=== PATIENT | female | born 1955 | race Hispanic/Latino ===

== ENCOUNTER 2016-05-23 07:00 | Emergency (ER) | payer MEDICAID, MEDICARE ==
[2016-05-23 07:19] VITALS: TEMP 98
[2016-05-23] MEDS ORDERED: Naproxen 550 mg Tab PO STA (07:55)
[2016-05-23] MEDS ORDERED: Naproxen 550 mg Tab PO ONE (07:59)
--- NOTE | 2016-05-23 08:35 | C.PDOC ---
Time Seen by Provider: 05/23/16 07:49 Chief Complaint (Nursing): Back Pain Past Medical History Vital Signs: Last Vital Signs Temp 98 F 05/23/16 07:17 Pulse 102 H 05/23/16 07:17 Resp 18 05/23/16 07:17 BP 149/97 H 05/23/16 07:17 Pulse Ox 99 05/23/16 07:17 - Medical History PMH: Anxiety, HTN Surgical History: Back Surgery ("fusion 2 years ago") - [facility] Procedures DRAINAGE OF PERITONEAL CAVITY, PERCUTANEOUS APPROACH (10/01/15) - Social History Hx Alcohol Use: No Hx Substance Use: No - Immunization History Hx Tetanus Toxoid Vaccination: No Hx Influenza Vaccination: No Hx Pneumococcal Vaccination: No ED Course And Treatment O2 Sat by Pulse Oximetry: 99 Disposition Counseled Patient/Family Regarding: Diagnosis, Need For Followup, Rx Given - Disposition Referrals: Derian Frankel, LANA, COLLECTIONS DIRECTOR [Advanced Practice Nurse] - Disposition: HOME/ ROUTINE Disposition Time: 08:35 Condition: STABLE Additional Instructions: FOLLOW UP WITH YOUR DOCTOR IN 1-2 DAYS USE MEDICATIONS FOR PAIN NEEDED RETURN TO ER IF SYMPTOMS WORSEN Prescriptions: Naproxen [Naprosyn Tab] 375 mg PO BID PRN #20 tab PRN Reason: pain Acetaminophen with Codeine [Tylenol with Codeine #3 Tablet] 1 each PO Q6 PRN # 12 tablet PRN Reason: pain Instructions: Contusion in Adults (ED), Foot Contusion (ED) Print Language: SOUTH AFRICAN - POA Present On Arrival: None, Falls Or Trauma - Clinical Impression Clinical Impression: Fall, Foot contusion, Lumbar contusion, Ecchymosis
--- NOTE | 2016-05-23 08:35 | C.PDOC ---
History Of Present Illness 60 y/o female, with Hx of lumbar fusion 20 years ago, presents to the ED for evaluation of lower back, and left foot pain. Patient states she tripped and fell, and landed on her lower back 2 days ago. Patient denies any head injury, LOC, extremity weakness/numbness, chest pain, shortness of breath, abdominal pain, nausea, vomiting. Time Seen by Provider: 05/23/16 07:49 Chief Complaint (Nursing): Back Pain History Per: Patient History/Exam Limitations: no limitations Onset/Duration Of Symptoms: Days (2) Current Symptoms Are (Timing): Still Present Quality Of Discomfort: "Pain" Severity: Moderate Previous Symptoms: Back Pain Associated Symptoms: None. denies: Incontinence, New Weakness, New Numbness Exacerbating Factor(s): Movement Additional History Per: Patient Past Medical History Reviewed: Historical Data, Nursing Documentation, Vital Signs Vital Signs: Last Vital Signs Temp 98 F 05/23/16 09:26 Pulse 79 05/23/16 09:26 Resp 16 05/23/16 09:26 BP 116/70 05/23/16 09:26 Pulse Ox 99 05/23/16 13:57 - Medical History PMH: Anxiety, HTN Surgical History: Back Surgery ("fusion 2 years ago") - [facility] Procedures DRAINAGE OF PERITONEAL CAVITY, PERCUTANEOUS APPROACH (10/01/15) Family History: States: No Known Family Hx - Social History Hx Alcohol Use: No Hx Substance Use: No - Immunization History Hx Tetanus Toxoid Vaccination: No Hx Influenza Vaccination: No Hx Pneumococcal Vaccination: No Review Of Systems Except As Marked, All Systems Reviewed And Found Negative. Constitutional: Negative for: Fever, Chills Cardiovascular: Negative for: Chest Pain Respiratory: Negative for: Shortness of Breath Gastrointestinal: Negative for: Nausea, Vomiting, Abdominal Pain Genitourinary: Negative for: Incontinence Musculoskeletal: Positive for: Back Pain, Foot Pain (left) Neurological: Negative for: Weakness, Numbness Physical Exam - Physical Exam Appears: Well, Non-toxic, Other (in mild pain ) Skin: Warm, Dry, Ecchymosis (4cm ecchymosis at left lumbar area; mild ecchymosis to dorsal aspect of left foot) Head: Atraumatic, Normacephalic Eye(s): bilateral: Normal Inspection Oral Mucosa: Moist Neck: Normal, Normal ROM, No Midline Cervical Tenderness, No Paracervical Tenderness, No Step Off Deformity, Supple Chest: Symmetrical, No Tenderness Cardiovascular: Rhythm Regular Respiratory: Normal Breath Sounds, No Rales, No Rhonchi, No Wheezing Gastrointestinal/Abdominal: Normal Exam, Bowel Sounds, Soft, No Tenderness Back: No CVA Tenderness, No Vertebral Tenderness, Paraspinal Tenderness (lumbar) Extremity: Normal ROM (left foot digits and ankle), Tenderness (mild TTP at dorsal aspect of left foot ), No Calf Tenderness, Capillary Refill (< 2 sec all digits ), No Deformity, No Swelling Extremity: Bilateral: Atraumatic, Normal Color And Temperature, Normal ROM Pulses: Left Dorsalis Pedis: Normal, Right Dorsalis Pedis: Normal Neurological/Psych: Oriented x3, Normal Motor, Normal Sensation Gait: Steady ED Course And Treatment O2 Sat by Pulse Oximetry: 99 (on RA) Pulse Ox Interpretation: Normal - Other Rad LS spine x-ray X-Ray: Viewed By Me, Read By Radiologist Interpretation: FINDINGS: The patient has undergone internal fixation of the included portions lower thoracic and upper lumbar spine. Osseous demineralization. Multilevel degenerative changes. Interval loss of vertebral body height at L2 compatible with compression fracture. Facet hypertrophy. Degenerative changes including small osteophyte formation. IMPRESSION: Loss of vertebral body height at L2 compatible with compression fracture, age indeterminate. MRI may be considered if indicated. Left foot x-ray X-Ray: Viewed By Me, Read By Radiologist Interpretation: FINDINGS: BONES: Osseous demineralization limits evaluation for acute fracture lines. Cortical irregularity involving the distal 5th metatarsal consistent with fracture. JOINTS: No dislocation. SOFT TISSUES: Mild soft tissue swelling. No evidence of radiopaque foreign body. OTHER FINDINGS: None. IMPRESSION: Mild soft tissue swelling. Cortical irregularity involving the distal 5th metatarsal consistent with fracture. Correlate with physical exam. Findings discussed with Dr. Garber on 05/23/16 at 10:13 a.m.. Progress Note: Patient given PO Naprosyn in ED. Xrays of LS spine and left foot ordered and reviewed. Reevaluation Time: 09:00 Reassessment Condition: Improved (On reassessment, patient's pain has improved and she states she feels better. Patient ambulating normally in ED. She was made aware of Xray findings, and instructed to follow up with PMD in 1-2 days, and with her orthopedic surgeon within 1 week if symptoms persist. Patient understands she should return to ED if symptoms worsen.) Disposition Counseled Patient/Family Regarding: Studies Performed, Diagnosis, Need For Followup, Rx Given - Disposition Referrals: Derian Frankel, LANA, AIRLINE DISPATCHER [Advanced Practice Nurse] - Disposition: HOME/ ROUTINE Disposition Time: 09:00 Condition: STABLE Additional Instructions: FOLLOW UP WITH YOUR DOCTOR IN 1-2 DAYS XRAY OF LOW BACK SHOWS OLD COMPRESSION FRACTURE AT L2- IF YOUR PAIN WORSENS, RETURN TO ER FOR MORE IMAGING USE MEDICATIONS FOR PAIN NEEDED RETURN TO ER IF SYMPTOMS WORSEN Prescriptions: Naproxen [Naprosyn Tab] 375 mg PO BID PRN #20 tab PRN Reason: pain Acetaminophen with Codeine [Tylenol with Codeine #3 Tablet] 1 each PO Q6 PRN # 12 tablet PRN Reason: pain Instructions: Contusion in Adults (ED), Foot Contusion (ED) Print Language: [place] - Clinical Impression Clinical Impression: Fall, Foot contusion, Lumbar contusion, Ecchymosis - Scribe Statement The provider has reviewed the documentation as recorded by the Niecy Iqbal Provider Attestation: All medical record entries made by the Niecy were at my direction and personally dictated by me. I have reviewed the chart and agree that the record accurately reflects my personal performance of the history, physical exam, medical decision making, and the department course for this patient. I have also personally directed, reviewed, and agree with the discharge instructions and disposition.
--- NOTE | 2016-05-23 09:12 | RAD ---
PROCEDURE: Radiographs of the Lumbar Spine. HISTORY: s/p fall, r/o fx COMPARISON: Lumbar spine as seen on CT abdomen and pelvis with IV contrast performed 10/01/15 FINDINGS: The patient has undergone internal fixation of the included portions lower thoracic and upper lumbar spine. Osseous demineralization. Multilevel degenerative changes. Interval loss of vertebral body height at L2 compatible with compression fracture. Facet hypertrophy. Degenerative changes including small osteophyte formation. IMPRESSION: Loss of vertebral body height at L2 compatible with compression fracture, age indeterminate. MRI may be considered if indicated.
[2016-05-23 09:27] VITALS: BP 116/70; PULSE 79; RESP 16
--- NOTE | 2016-05-23 10:15 | RAD ---
PROCEDURE: Left Foot Radiographs. HISTORY: left foot pain s/p fall COMPARISON: None available. FINDINGS: BONES: Osseous demineralization limits evaluation for acute fracture lines. Cortical irregularity involving the distal 5th metatarsal consistent with fracture. JOINTS: No dislocation. SOFT TISSUES: Mild soft tissue swelling. No evidence of radiopaque foreign body. OTHER FINDINGS: None. IMPRESSION: Mild soft tissue swelling. Cortical irregularity involving the distal 5th metatarsal consistent with fracture. Correlate with physical exam. Findings discussed with Dr. Garber on 05/23/16 at 10:13 a.m..
[2016-05-23 13:23] VITALS: O2SAT 99
== END 2016-05-23 09:27 | disposition home or self-care (01) ==
LOC: C.ER 07:00
DX: S30.0XXA Contusion of lower back and pelvis, initial encounter (principal); S90.32XA Contusion of left foot, initial encounter; W01.0XXA Fall on same level from slipping, tripping and stumbling without subsequent striking against object, initial encounter

== ENCOUNTER 2017-07-22 20:13 | Inpatient (IN) | payer MEDICAID, MEDICARE ==
[2017-07-22 21:28] LABS: BASO # 0.1 K/uL (0.0-0.2); BASO % 1.2 % (0.0-2.0); MONO # 0.5 K/uL (0.0-0.8); NEUT # 2.7 K/uL (1.8-7.0); NRBC % 0.1 % (0.0-2.0); WHITE BLOOD COUNT 5.6 K/uL (4.8-10.8)
[2017-07-22] MEDS ORDERED: Sodium Chloride 0.9% 1,000 ML IV ONE (21:30)
[2017-07-22 21:34] LABS: EOS % 0.6 % (0.0-4.0); LYMPH # 2.3 K/uL (1.0-4.3); LYMPH % 41.4 % (20.0-40.0); MEAN CORPUSCULAR HEMOGLOBIN 32.8 pg (27.0-31.0); MEAN CORPUSCULAR HGB CONC 33.8 g/dL (33.0-37.0); MEAN PLATELET VOLUME 8.3 fL (7.2-11.7); MONO % 8.2 % (0.0-10.0); NEUT % 48.6 % (50.0-75.0); RBC 4.28 Mil/uL (3.80-5.20); RED CELL DISTRIBUTION WIDTH 14.6 % (11.5-14.5)
[2017-07-22] MEDS ORDERED: Sodium Chloride 0.9% 1,000 ML ONE (21:43)
[2017-07-22 21:51] LABS: ALB/GLOB RATIO 1.3 (1.0-2.1); ALBUMIN 5.5 g/dL (3.5-5.0); ALT/SGPT 103 U/L (9-52); AST/SGOT 206 U/L (14-36); BLOOD UREA NITROGEN 13 mg/dL (7-17); CALCIUM 8.7 mg/dl (8.6-10.4); GFR AFRICAN-AMERICAN > 60; GFR NON-AFRICAN AMERICAN > 60
--- NOTE | 2017-07-22 21:57 | C.PDOC ---
History Of Present Illness 62 year old female, whose PMHx includes HTN and chronic alcoholism, presents to the ED for evaluation of generalized weakness and tiredness which began 3-4 days ago. Patient denies fever, chills, headache, chest pain, shortness of breath, nausea, vomiting; currently in mild alcohol withdrawal. Patient has history of back surgery s/p fracture of eight vertebrae. Time Seen by Provider: 07/22/17 20:43 Chief Complaint (Nursing): Weakness/Neurological Deficit History Per: Patient History/Exam Limitations: no limitations Onset/Duration Of Symptoms: Days (3-4) Current Symptoms Are (Timing): Still Present Additional History Per: Patient Past Medical History Reviewed: Historical Data, Nursing Documentation, Vital Signs Vital Signs: Last Vital Signs Temp 98.6 F 07/22/17 22:45 Pulse 112 H 07/22/17 22:45 Resp 20 07/22/17 22:45 BP 149/100 H 07/22/17 22:45 Pulse Ox 97 07/22/17 23:45 - Medical History PMH: Anxiety, HTN Surgical History: Back Surgery ("fusion 2 years ago") Family History: States: Unknown Family Hx - Social History Hx Alcohol Use: Yes Hx Substance Use: No - Immunization History Hx Tetanus Toxoid Vaccination: Yes Hx Influenza Vaccination: No Hx Pneumococcal Vaccination: No Review Of Systems Constitutional: Positive for: Weakness. Negative for: Fever, Chills Eyes: Negative for: Pain, Vision Change ENT: Positive for: Ear Pain. Negative for: Ear Discharge, Nose Pain Cardiovascular: Negative for: Chest Pain, Palpitations, Orthopnea, Paroxysmal Noc. Dyspnea Respiratory: Negative for: Cough, Shortness of Breath, SOB with Excertion, Pleuritic Pain Gastrointestinal: Negative for: Nausea, Vomiting Genitourinary: Negative for: Dysuria, Frequency, Hematuria Musculoskeletal: Negative for: Neck Pain, Shoulder Pain, Back Pain, Hand Pain Skin: Negative for: Rash Neurological: Negative for: Weakness, Numbness, Incoordination, Change in Speech , Confusion, Seizures, Altered Mental Status, Headache, Dizziness Psych: Negative for: Anxiety, Depression, Psychosis Physical Exam - Physical Exam Appears: Non-toxic, No Acute Distress, In Acute Distress Skin: Normal Color, Warm, Dry Head: Atraumatic, Normacephalic Eye(s): bilateral: Normal Inspection, PERRL, EOMI Ear(s): Left: TM Erythema, TM Dull Nose: Normal Oral Mucosa: Moist Tongue: Normal Appearing (tongue fasiculations) Lips: Normal Appearing Teeth: Normal Dentition Gingiva: Normal Appearing Throat: Normal Neck: Normal, Supple Chest: Symmetrical, No Deformity, No Tenderness Cardiovascular: Rhythm Regular, No Murmur Respiratory: Normal Breath Sounds, No Rales, No Rhonchi, No Wheezing Gastrointestinal/Abdominal: Soft, No Tenderness, No Guarding, No Rebound Back: Normal Inspection Extremity: Normal ROM, Capillary Refill (less than 2 seconds ) Extremity: Bilateral: Atraumatic, No Pedal Edema, Normal Color And Temperature, Normal ROM Neurological/Psych: Oriented x3, Normal Speech, Normal Cognition ED Course And Treatment - Laboratory Results Result Diagrams: 07/22/17 21:25 07/22/17 21:25 ECG: Interpreted By Me, Viewed By Me ECG Rhythm: Sinus Tachycardia Interpretation Of ECG: Sinus Tachycardia at rate 101bpm. AR Interval: 134ms. QRS duration: 82ms. QT/QTc: 360/466. No ischemic changes. O2 Sat by Pulse Oximetry: 97 (on RA) Pulse Ox Interpretation: Normal - Radiology CXR: Interpreted by Me, Viewed By Me CXR Interpretation: Yes: No Acute Disease, Other (hyperinflation). No: Infiltrates Progress Note: Librium 50 PO and Valium 5 PO adminsitered. CBC: unremarkable. Hemoglobin: 14. White count: 5.6. CO2: 20. AST/ALT: 200, 100. Alk. Phos: 175. BUN: 13 Critical Care Time - Critical Care Note Total Time (in mins): 30 Documented critical care: time excludes all time spent performing seperately billable procedures. Medical Decision Making Medical Decision Making: Progress: Bloodwork, CXR, EKG ordered and reviewed. IV Fluids administered. Patient admitted and accepted under Dr Rivera. Second dose of Valium administered. Disposition Counseled Patient/Family Regarding: Diagnosis, Need For Followup - Disposition Disposition: HOSPITALIZED Disposition Time: 00:33 Condition: GUARDED - Clinical Impression Clinical Impression: Alcohol dependence, Alcohol abuse, Alcohol withdrawal - Scribe Statement The provider has reviewed the documentation as recorded by the Scribe (Daiana Iqbal) Provider Attestation: All medical record entries made by the Scribe were at my direction and personally dictated by me. I have reviewed the chart and agree that the record accurately reflects my personal performance of the history, physical exam, medical decision making, and the department course for this patient. I have also personally directed, reviewed, and agree with the discharge instructions and disposition.
[2017-07-23] MEDS: Folic Acid 1 MG, Thiamine 100 MG, Multivitamin (MVI) 10 ML in Dextrose 5% In Water 1,00... IV SCH ×3 (01:21→22:45)
[2017-07-23] MEDS ORDERED: Pneumococcal 23-Valent Vaccine IM ONE (03:16)
[2017-07-23 07:36] LABS: PROTHROMBIN TIME 10.8 SECONDS (9.7-12.2)
[2017-07-23 07:47] LABS: BASO % 0.8 % (0.0-2.0); EOS # 0.1 K/uL (0.0-0.7); EOS % 1.9 % (0.0-4.0); HEMOGLOBIN 11.8 g/dL (11.0-16.0); LYMPH % 26.6 % (20.0-40.0); MEAN CELL VOLUME 96.8 fL (81.0-99.0); MEAN CORPUSCULAR HEMOGLOBIN 33.3 pg (27.0-31.0); MEAN CORPUSCULAR HGB CONC 34.4 g/dL (33.0-37.0); MEAN PLATELET VOLUME 8.4 fL (7.2-11.7); MONO # 0.4 K/uL (0.0-0.8); NEUT # 2.3 K/uL (1.8-7.0); NEUT % 60.7 % (50.0-75.0); NRBC % 0.1 % (0.0-2.0); RBC 3.53 Mil/uL (3.80-5.20); RED CELL DISTRIBUTION WIDTH 14.5 % (11.5-14.5); WHITE BLOOD COUNT 3.8 K/uL (4.8-10.8)
[2017-07-23 07:50] LABS: ALB/GLOB RATIO 1.5 (1.0-2.1); ALBUMIN 4.5 g/dL (3.5-5.0); ALT/SGPT 83 U/L (9-52); AST/SGOT 149 U/L (14-36); BLOOD UREA NITROGEN 9 mg/dL (7-17); CALCIUM 8.6 mg/dl (8.6-10.4); GFR AFRICAN-AMERICAN > 60; GFR NON-AFRICAN AMERICAN > 60
[2017-07-23] MEDS: Pantoprazole 20 mg EC Tab PO SCH (09:16)
[2017-07-23] MEDS ORDERED: Potassium Chloride 20 mEq ER Tab PO ONE (10:00)
--- NOTE | 2017-07-23 18:09 | RAD ---
HISTORY: chest pain COMPARISON: 09/30/2015 TECHNIQUE: Chest PA and lateral FINDINGS: LUNGS: No active pulmonary disease. PLEURA: No significant pleural effusion identified. No pneumothorax apparent. CARDIOVASCULAR: Normal. OSSEOUS STRUCTURES: Thoracolumbar spinal fixation. VISUALIZED UPPER ABDOMEN: Normal. OTHER FINDINGS: None. IMPRESSION: No acute infiltrate.
--- NOTE | 2017-07-24 00:39 | CP.PCM.HP ---
History of Present Illness - History of Present Illness History of Present Illness: History Of Present Illness 62 year old female, whose PMHx includes HTN and chronic alcoholism, presents to the ED for evaluation of generalized weakness and tiredness which began 3-4 days ago. Patient denies fever, chills, headache, chest pain, shortness of breath, nausea, vomiting; currently in mild alcohol withdrawal. Patient has history of back surgery s/p fracture of eight vertebrae. Present on Admission - Present on Admission Any Indicators Present on Admission: No Past Patient History - Past Medical History & Family History Past Medical History?: Yes - Past Social History Smoking Status: Never Smoked - CARDIAC Hx Cardiac Disorders: Yes Hx Hypertension: Yes - PULMONARY Hx Respiratory Disorders: No - NEUROLOGICAL Hx Neurological Disorder: No - HEENT Hx HEENT Problems: No - RENAL Hx Chronic Kidney Disease: No - ENDOCRINE/METABOLIC Hx Endocrine Disorders: No - HEMATOLOGICAL/ONCOLOGICAL Hx Blood Disorders: Yes Hx Cirrhosis: Yes - INTEGUMENTARY Hx Dermatological Problems: No - MUSCULOSKELETAL/RHEUMATOLOGICAL Hx Musculoskeletal Disorders: Yes Hx Back Pain: Yes Hx Falls: No - GASTROINTESTINAL Hx Gastrointestinal Disorders: No - GENITOURINARY/GYNECOLOGICAL Hx Genitourinary Disorders: No - PSYCHIATRIC Hx Psychophysiologic Disorder: Yes Hx Anxiety: Yes Hx Substance Use: No - SURGICAL HISTORY Hx Surgeries: Yes Other/Comment: SPINAL SURGERY 2013 HAS 9 RODS - ANESTHESIA Hx Anesthesia: Yes Hx Anesthesia Reactions: No Hx Malignant Hyperthermia: No Has any member of the family had a problem w/ anesthesia?: No Meds Allergies/Adverse Reactions: Allergies Allergy/AdvReac Type Severity Reaction Status Date / Time No Known Allergies Allergy Verified 12/14/16 11:12 Results - Vital Signs Recent Vital Signs: Last Vital Signs Temp 98.4 F 07/23/17 15:09 Pulse 110 H 07/23/17 15:09 Resp 20 07/23/17 15:09 BP 168/101 H 07/23/17 15:09 Pulse Ox 99 07/23/17 15:09 - Labs Result Diagrams: 07/26/17 06:58 07/26/17 06:58 Labs: Laboratory Results - last 24 hr 07/23/17 07/23/17 07/23/17 07:21 07:21 07:21 WBC 3.8 L RBC 3.53 L Hgb 11.8 D Hct 34.2 MCV 96.8 MCH 33.3 H MCHC 34.4 RDW 14.5 Plt Count 50 L D MPV 8.4 Neut % (Auto) 60.7 Lymph % (Auto) 26.6 [place] % (Auto) 10.0 Eos % (Auto) 1.9 Baso % (Auto) 0.8 Neut # (Auto) 2.3 Lymph # (Auto) 1.0 [place] # (Auto) 0.4 Eos # (Auto) 0.1 Baso # (Auto) 0.0 PT 10.8 INR 1.0 APTT 46 H Sodium 143 Potassium 3.5 L Chloride 102 Carbon Dioxide 25 Anion Gap 20 BUN 9 Creatinine 0.5 L Est GFR ( Amer) > 60 Est GFR (Non-Af Amer) > 60 Random Glucose 109 H Calcium 8.6 Total Bilirubin 1.5 H AST 149 H D ALT 83 H Alkaline Phosphatase 107 Total Protein 7.5 Albumin 4.5 Globulin 3.0 Albumin/Globulin Ratio 1.5
[2017-07-24] MEDS: Pantoprazole 20 mg EC Tab PO SCH (09:46)
--- NOTE | 2017-07-24 11:32 | PCM.PSYCH ---
Initial Psychiatric Evaluation - Initial Psychiatric Evaluation Type of Admission: Voluntary Legal Status: Capacity Chief Complaint (in patient's own words): "I drank too much" History of Present Illness and Precipitating Events: Pt is seen, chart reviewed and case discussed. Consult was requested for her alcohol use. The pt is a 62 y/o WF, with 2 children, living with her adult son, retired. She admits to drinking 2+ glasses of wine every night, however per her chart she drinks 1 bottle every day and her daughter claimed she was an "alcoholic." She is on librium taper and feels better No drug hx No DTs or seizures (again, she could be under-reporting) She admitted to "maybe" being in detox "years ago." NO rehab and no AA She denies psych sxs Past psych hx: Denied Medical hx: HTN Family psych hx: Fa of alcoholism Current Medications: Active Medications Generic Name Dose Route Start Last Admin Trade Name Freq PRN Reason Stop Dose Admin Chlordiazepoxide 50 mg 07/22/17 23:22 07/24/17 04:38 Librium PO 50 mg Q4H PRN Administration Agitation Chlordiazepoxide 25 mg 07/23/17 18:00 07/24/17 06:55 Librium PO 07/27/17 17:59 Not Given Q6 ONESIMO Taper Folic Acid 1 mg/ Thiamine HCl 1,011.2 mls @ 80 mls/hr 07/23/17 23:00 22:45 100 mg/ Multivitamins/Vitamin IV 80 mls/hr C 10 ml/ Dextrose 2300 ONESIMO Administration Lactulose 20 gm 07/23/17 22:00 07/23/17 21:23 Enulose PO 20 gm HS ONESIMO Administration Pantoprazole Sodium 20 mg 07/23/17 10:00 07/24/17 09:46 Protonix Ec Tab PO 20 mg DAILY ONESIMO Administration Propranolol HCl 10 mg 07/23/17 10:00 07/24/17 09:46 Inderal PO 10 mg DAILY ONESIMO Administration Past Psychiatric History - Past Psychiatric History Previous Treatment History: None Pertinent Medical Hx (Current Medical&Sleep Prob, Allergies): Allergies Allergy/AdvReac Type Severity Reaction Status Date / Time No Known Allergies Allergy Verified 12/14/16 11:12 Propranolol [Propranolol HCl] 10 mg PO DAILY 05/23/16 traMADol [Ultram] 50 mg PO Q8 #20 tab 12/14/16 Review of Systems - Neurological Neurological: Tremor - Psychiatric Psychiatric: Abnormal Sleep Pattern, Anxiety. absent: Hallucinations, Homicidal Ideation, Hopelessness, Suicidal Ideation Mental Status Examination - Personal Presentation Personal Presentation: Looks stated age - Affect Affect: Constricted - Motor Activity Motor Activity: Calm - Reliability in Providing Information Reliability in Providing Information: Good - Speech Speech: Organized - Mood Mood: Anxious - Formal Thought Process Formal Thought Process: No Impairment - Cognitive Functions Orientation: Person, Place, Situation, Time Sensorium: Alert Attention/Concentration: Easily distracted Estimate of Intelligence: Average Judgement: Intact, as evidence by: Insight regarding need for hospitalization Memory: Recent intact, as evidence by: Ability to recall events of the day, Remote impaired as evidenced by: Inability to recall sig life events - Risk Risk: Withdrawal, Diminished functioning - Strength & Assets Inventory Strength & Assets Inventory: Family support - Limitations Limitations: Other DSM 5 DX - DSM 5 DSM 5 Diagnosis: Alcohol withdrawal Alcohol use d/o- severe Anxiety d/o- unspecified - Recommended/Plan of Treatment Treatment Recommendations and Plan of Treatment: Librium detox As needed medications Gabapentin for augmentation if needed All risks, benefits and alternatives of medications, including no medications, discussed and the patient understood and agreed. Supportive therapy and psychoeducation OR for abstinence Encourage MAT: Naltrexone Refer to IOP Attend self-help groups as well Psych will sign off 34 min
[2017-07-24 14:17] LABS: BASO % 1.2 % (0.0-2.0); EOS # 0.1 K/uL (0.0-0.7); EOS % 2.8 % (0.0-4.0); HEMOGLOBIN 12.4 g/dL (11.0-16.0); LYMPH # 0.8 K/uL (1.0-4.3); LYMPH % 25.5 % (20.0-40.0); MEAN CELL VOLUME 97.6 fL (81.0-99.0); MEAN CORPUSCULAR HEMOGLOBIN 33.3 pg (27.0-31.0); MEAN CORPUSCULAR HGB CONC 34.1 g/dL (33.0-37.0); MEAN PLATELET VOLUME 8.8 fL (7.2-11.7); MONO # 0.3 K/uL (0.0-0.8); MONO % 10.5 % (0.0-10.0); NEUT # 1.9 K/uL (1.8-7.0); NRBC % 0.1 % (0.0-2.0); RBC 3.72 Mil/uL (3.80-5.20); RED CELL DISTRIBUTION WIDTH 14.4 % (11.5-14.5); WHITE BLOOD COUNT 3.1 K/uL (4.8-10.8)
[2017-07-24 14:29] LABS: BLOOD UREA NITROGEN 11 mg/dL (7-17); CALCIUM 9.8 mg/dl (8.6-10.4); GFR AFRICAN-AMERICAN > 60; GFR NON-AFRICAN AMERICAN > 60
[2017-07-24] MEDS: Magnesium Oxide 400 mg Tab UD PO SCH (17:30)
[2017-07-25] MEDS: Folic Acid 1 MG, Thiamine 100 MG, Multivitamin (MVI) 10 ML in Dextrose 5% In Water 1,00... IV SCH ×2 (05:07→22:42)
[2017-07-25] MEDS: Magnesium Oxide 400 mg Tab UD PO SCH ×3 (10:12→17:16)
[2017-07-25] MEDS: Pantoprazole 20 mg EC Tab PO SCH (10:13)
--- NOTE | 2017-07-25 14:36 | PCM.PYCHPN ---
Psychiatric Progress Note - Psychiatric Progress Note Patient seen today, length of contact: 18 min Patient Chief Complaint: "I am fine" Problems Identified/Issues Discussed: The pt is seen, chart reviewed, case discussed with staff. Support and psychoeducation given [place] used briefly No SEs from medications, risks discussed. After care discussed - not interested in rehab or IOP but will consider AA Of note, pt did NOT sleep well and her cognition fluctuated: she thought sjrandolph was in a hotel, to me she first said "home" but then corrected herself. Her orientation to time was also worse than yesterday. She pulled her iv off yesterday She is likely getting delirious. 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 Medication Change: Yes (detox adjusted) Medical Record Reviewed: Yes Mental Status Examination - Cognitive Function Orientation: Person, Place, Situation, Time Memory: Impaired Attention: Poor Concentration: Poor Association: WNL Fund of Knowledge: Poor - Mood Mood: Anxious - Affect Affect: Constricted - Speech Speech: Appropriate - Formal Thought Process Formal Thought Process: No Impairment - Suicidal Ideation Suicidal Ideation: No - Homicidal Ideation Homicidal Ideation: No Goal/Treatment Plan - Goal/Treatment Plan Need for Continued Stay: Severe functional impairment, Other (medical) Progress Toward Problem(s) and Goals/Treatment Plan: Librium detox prn ativan per CIWA As needed medications Gabapentin for augmentation if needed All risks, benefits and alternatives of medications, including no medications, discussed and the patient understood and agreed. Supportive therapy and psychoeducation [place] for abstinence Encourage MAT: Naltrexone Refer to IOP Attend self-help groups as well
--- NOTE | 2017-07-25 16:47 | CARD ---
APPROVED REPORT EKG Measurement Heart [id number] <Conclusion> Sinus tachycardia Otherwise normal ECG
--- NOTE | 2017-07-26 00:30 | CP.PCM.PN ---
Subjective - Date & Time of Evaluation Date of Evaluation: 07/25/17 Time of Evaluation: 18:00 - Subjective Subjective: Pt seen and evaluated at bedside Objective - Vital Signs/Intake and Output Vital Signs (last 24 hours): Temp Pulse Resp BP Pulse Ox 97.9 F 80 20 118/80 98 07/25/17 15:09 07/25/17 15:09 07/25/17 15:09 07/25/17 15:09 07/25/17 15:09 Intake and Output: 07/25/17 07/26/17 18:59 06:59 Intake Total 560 Balance 560 - Medications Medications: Current Medications Gabapentin (Neurontin) 100 mg PO TID [facility] Last Admin: 07/25/17 17:16 Dose: 100 mg Folic Acid 1 mg/ Thiamine HCl 100 mg/ Multivitamins/Vitamin C 10 ml/ Dextrose 1 ,011.2 mls @ 80 mls/hr IV 2300 [facility] Last Admin: 07/25/17 22:42 Dose: 80 mls/hr Lactulose (Enulose) 20 gm PO [facility] Last Admin: 07/25/17 21:10 Dose: 20 gm Lorazepam (Ativan) 1 mg IVP Q6H PRN PRN Reason: alcohol withdrawal Lorazepam (Ativan) 1 mg IVP Q6H [facility] PRN Reason: Taper Stop: 07/28/17 22:59 Last Admin: 07/25/17 22:42 Dose: 1 mg Magnesium Oxide (Mag-Ox) 400 mg PO TID [facility] Last Admin: 07/25/17 17:16 Dose: 400 mg Pantoprazole Sodium (Protonix Ec Tab) 20 mg PO DAILY [facility] Last Admin: 07/25/17 10:13 Dose: 20 mg Propranolol HCl (Inderal) 10 mg PO TID [facility] Last Admin: 07/25/17 17:16 Dose: 10 mg Trazodone HCl (Desyrel) 50 mg PO [facility] Last Admin: 07/25/17 21:10 Dose: 50 mg - Labs Labs: 07/24/17 14:04 07/24/17 14:04 PT 10.8 SECONDS (9.7-12.2) 07/23/17 07:21 INR 1.0 07/23/17 07:21 APTT 46 SECONDS (21-34) H 07/23/17 07:21
[2017-07-26 07:16] LABS: HEMOGLOBIN 11.3 g/dL (11.0-16.0); LYMPH % 30.1 % (20.0-40.0); MEAN CELL VOLUME 97.9 fL (81.0-99.0); MEAN CORPUSCULAR HEMOGLOBIN 32.7 pg (27.0-31.0); MEAN CORPUSCULAR HGB CONC 33.4 g/dL (33.0-37.0); MEAN PLATELET VOLUME 10.1 fL (7.2-11.7); NEUT % 50.6 % (50.0-75.0); RBC 3.47 Mil/uL (3.80-5.20); RED CELL DISTRIBUTION WIDTH 14.4 % (11.5-14.5); WHITE BLOOD COUNT 3.1 K/uL (4.8-10.8)
[2017-07-26 07:17] LABS: BASO % 1.2 % (0.0-2.0); EOS # 0.1 K/uL (0.0-0.7); EOS % 3.2 % (0.0-4.0); LYMPH # 0.9 K/uL (1.0-4.3); MONO # 0.5 K/uL (0.0-0.8); MONO % 14.9 % (0.0-10.0); NEUT # 1.5 K/uL (1.8-7.0); NRBC % 0.1 % (0.0-2.0)
--- NOTE | 2017-07-26 07:27 | CP.PCM.PN ---
Subjective - Date & Time of Evaluation Date of Evaluation: 07/24/17 Time of Evaluation: 14:00 - Subjective Subjective: 62 year old female, whose PMHx includes HTN and chronic alcoholism, presents to the ED for evaluation of generalized weakness and tiredness which began 3-4 days ago. Patient denies fever, chills, headache, chest pain, shortness of breath, nausea, vomiting; currently in mild alcohol withdrawal. Patient has history of back surgery s/p fracture of eight vertebrae. Objective - Vital Signs/Intake and Output Vital Signs (last 24 hours): Temp Pulse Resp BP Pulse Ox 97.7 F 80 20 110/72 96 07/25/17 23:45 07/25/17 23:45 07/25/17 23:45 07/25/17 23:45 07/25/17 23:45 Intake and Output: 07/26/17 07/26/17 06:59 18:59 Intake Total 1200 Balance 1200 - Medications Medications: Current Medications Gabapentin (Neurontin) 100 mg PO TID [facility] Last Admin: 07/25/17 17:16 Dose: 100 mg Folic Acid 1 mg/ Thiamine HCl 100 mg/ Multivitamins/Vitamin C 10 ml/ Dextrose 1 ,011.2 mls @ 80 mls/hr IV 2300 [facility] Last Admin: 07/25/17 22:42 Dose: 80 mls/hr Lactulose (Enulose) 20 gm PO [facility] Last Admin: 07/25/17 21:10 Dose: 20 gm Lorazepam (Ativan) 1 mg IVP Q6H PRN PRN Reason: alcohol withdrawal Lorazepam (Ativan) 1 mg IVP Q6H [facility] PRN Reason: Taper Stop: 07/28/17 22:59 Last Admin: 07/26/17 04:45 Dose: 1 mg Magnesium Oxide (Mag-Ox) 400 mg PO TID [facility] Last Admin: 07/25/17 17:16 Dose: 400 mg Pantoprazole Sodium (Protonix Ec Tab) 20 mg PO DAILY [facility] Last Admin: 07/25/17 10:13 Dose: 20 mg Propranolol HCl (Inderal) 10 mg PO TID [facility] Last Admin: 07/25/17 17:16 Dose: 10 mg Trazodone HCl (Desyrel) 50 mg PO [facility] Last Admin: 07/25/17 21:10 Dose: 50 mg - Labs Labs: 07/26/17 06:58 06/17/18 14:04 PT 10.8 SECONDS (9.7-12.2) 07/23/17 07:21 INR 1.0 07/23/17 07:21 APTT 46 SECONDS (21-34) H 07/23/17 07:21 - Constitutional Appears: Well, Non-toxic - Head Exam Head Exam: ATRAUMATIC, NORMAL INSPECTION, NORMOCEPHALIC - Eye Exam Eye Exam: EOMI, Normal appearance, PERRL Pupil Exam: NORMAL ACCOMODATION - ENT Exam ENT Exam: Mucous Membranes Moist - Neck Exam Neck Exam: Normal Inspection - Respiratory Exam Respiratory Exam: NORMAL BREATHING PATTERN - Cardiovascular Exam Cardiovascular Exam: REGULAR RHYTHM - GI/Abdominal Exam GI & Abdominal Exam: Soft, Normal Bowel Sounds - Extremities Exam Extremities Exam: Full ROM Assessment and Plan (1) Alcohol abuse Status: Acute (2) Alcohol dependence Status: Acute (3) Alcohol withdrawal Status: Acute (4) Ascites Status: Acute (5) Back strain Status: Acute (6) Cirrhosis Status: Acute (7) Ecchymosis Status: Acute (8) Fall Status: Acute (9) Foot contusion Status: Acute (10) Lumbar contusion Status: Acute (11) Subungual hematoma of fifth toe of right foot Status: Acute (12) Suspected DVT (deep vein thrombosis) Status: Acute - Assessment and Plan (Free Text) Assessment: 62 year old female, whose PMHx includes HTN and chronic alcoholism, presents to the ED for evaluation of generalized weakness and tiredness which began 3-4 days ago. Patient denies fever, chills, headache, chest pain, shortness of breath, nausea, vomiting; currently in mild alcohol withdrawal. Patient has history of back surgery s/p fracture of eight vertebrae. Plan: cont. same treatment , psyche is on the case
[2017-07-26 07:42] LABS: ALB/GLOB RATIO 1.5 (1.0-2.1); ALBUMIN 4.4 g/dL (3.5-5.0); ALT/SGPT 78 U/L (9-52); AST/SGOT 110 U/L (14-36); BLOOD UREA NITROGEN 17 mg/dL (7-17); CALCIUM 9.1 mg/dl (8.6-10.4); GFR AFRICAN-AMERICAN > 60; GFR NON-AFRICAN AMERICAN > 60
[2017-07-26] MEDS: Magnesium Oxide 400 mg Tab UD PO SCH ×3 (10:04→18:31)
[2017-07-26] MEDS: Pantoprazole 20 mg EC Tab PO SCH (10:05)
--- NOTE | 2017-07-26 13:00 | PCM.PYCHPN ---
Psychiatric Progress Note - Psychiatric Progress Note Patient seen today, length of contact: 17 min Patient Chief Complaint: "I am fine" Problems Identified/Issues Discussed: The pt is seen, chart reviewed, case discussed with staff. Support and psychoeducation given, [place] used briefly No new symptoms reported, improving slowly and needs more time She is now oriented but still somehat slowed No SEs from medications, risks discussed. After care discussed Medication Change: Yes (detox adjusted) Medical Record Reviewed: Yes Mental Status Examination - Cognitive Function Orientation: Person, Place, Situation, Time Memory: Impaired Attention: Poor Concentration: Poor Association: WNL Fund of Knowledge: Poor - Mood Mood: Anxious - Affect Affect: Constricted - Speech Speech: Appropriate - Formal Thought Process Formal Thought Process: No Impairment - Suicidal Ideation Suicidal Ideation: No - Homicidal Ideation Homicidal Ideation: No Goal/Treatment Plan - Goal/Treatment Plan Need for Continued Stay: Severe functional impairment, Other (medical) Progress Toward Problem(s) and Goals/Treatment Plan: Librium detox prn ativan per [facility] As needed medications Gabapentin for augmentation if needed All risks, benefits and alternatives of medications, including no medications, discussed and the patient understood and agreed. Supportive therapy and psychoeducation [place] for abstinence Encourage MAT: Naltrexone Refer to IOP Attend self-help groups as well
[2017-07-26] MEDS: Folic Acid 1 MG, Thiamine 100 MG, Multivitamin (MVI) 10 ML in Dextrose 5% In Water 1,00... IV SCH (22:00)
[2017-07-27 07:39] LABS: BASO # 0.1 K/uL (0.0-0.2); BASO % 2.4 % (0.0-2.0); EOS # 0.1 K/uL (0.0-0.7); EOS % 2.7 % (0.0-4.0); HEMOGLOBIN 11.1 g/dL (11.0-16.0); LYMPH % 31.1 % (20.0-40.0); MEAN CELL VOLUME 98.1 fL (81.0-99.0); MEAN CORPUSCULAR HGB CONC 34.6 g/dL (33.0-37.0); MEAN PLATELET VOLUME 10.4 fL (7.2-11.7); MONO # 0.5 K/uL (0.0-0.8); MONO % 15.5 % (0.0-10.0); NEUT # 1.5 K/uL (1.8-7.0); NEUT % 48.3 % (50.0-75.0); NRBC % 0.2 % (0.0-2.0); RBC 3.27 Mil/uL (3.80-5.20); RED CELL DISTRIBUTION WIDTH 14.2 % (11.5-14.5); WHITE BLOOD COUNT 3.2 K/uL (4.8-10.8)
--- NOTE | 2017-07-27 07:52 | CP.PCM.PN ---
Subjective - Date & Time of Evaluation Date of Evaluation: 07/26/17 Time of Evaluation: 19:00 - Subjective Subjective: Pt seen and examined by me Objective - Vital Signs/Intake and Output Vital Signs (last 24 hours): Temp Pulse Resp BP Pulse Ox 98 F 73 20 100/64 98 07/26/17 23:00 07/26/17 23:00 07/26/17 23:00 07/26/17 23:00 07/26/17 23:00 Intake and Output: 07/27/17 07/27/17 06:59 18:59 Intake Total 1140 Balance 1140 - Medications Medications: Current Medications Gabapentin (Neurontin) 100 mg PO TID [facility] Last Admin: 07/26/17 18:31 Dose: 100 mg Folic Acid 1 mg/ Thiamine HCl 100 mg/ Multivitamins/Vitamin C 10 ml/ Dextrose 1 ,011.2 mls @ 80 mls/hr IV 2300 [facility] Last Admin: 07/26/17 22:00 Dose: 80 mls/hr Lactulose (Enulose) 20 gm PO [facility] Last Admin: 07/26/17 22:00 Dose: 20 gm Lorazepam (Ativan) 1 mg IVP Q6H PRN PRN Reason: alcohol withdrawal Lorazepam (Ativan) 1 mg IVP Q8H [facility] PRN Reason: Taper Stop: 07/28/17 22:59 Last Admin: 07/27/17 06:12 Dose: 1 mg Magnesium Oxide (Mag-Ox) 400 mg PO TID [facility] Last Admin: 07/26/17 18:31 Dose: 400 mg Pantoprazole Sodium (Protonix Ec Tab) 20 mg PO DAILY [facility] Last Admin: 07/26/17 10:05 Dose: 20 mg Propranolol HCl (Inderal) 10 mg PO TID [facility] Last Admin: 07/26/17 18:31 Dose: 10 mg Trazodone HCl (Desyrel) 50 mg PO [facility] Last Admin: 07/26/17 22:00 Dose: 50 mg - Labs Labs: 07/27/17 07:23 07/26/17 06:58 PT 10.8 SECONDS (9.7-12.2) 07/23/17 07:21 INR 1.0 07/23/17 07:21 APTT 46 SECONDS (21-34) H 07/23/17 07:21
[2017-07-27 08:06] VITALS: RESP 18
[2017-07-27 08:15] LABS: BLOOD UREA NITROGEN 13 mg/dL (7-17); CALCIUM 9.2 mg/dl (8.6-10.4); GFR AFRICAN-AMERICAN > 60; GFR NON-AFRICAN AMERICAN > 60
[2017-07-27] MEDS: Pantoprazole 20 mg EC Tab PO SCH (09:39)
[2017-07-27] MEDS: Magnesium Oxide 400 mg Tab UD PO SCH ×2 (09:39→13:23)
--- NOTE | 2017-07-27 13:23 | PCM.PYCHPN ---
Psychiatric Progress Note - Psychiatric Progress Note Patient seen today, length of contact: 15 min Patient Chief Complaint: "I am better" Problems Identified/Issues Discussed: The pt is seen, chart reviewed, case discussed with staff. Support and psychoeducation given, [place] used briefly Better than before Cleared for d/c Medication Change: No Medical Record Reviewed: Yes Mental Status Examination - Cognitive Function Orientation: Person, Place, Situation, Time Memory: Intact Attention: Poor Concentration: Poor Association: WNL Fund of Knowledge: Poor - Mood Mood: Anxious - Affect Affect: Constricted - Speech Speech: Appropriate - Formal Thought Process Formal Thought Process: No Impairment - Suicidal Ideation Suicidal Ideation: No - Homicidal Ideation Homicidal Ideation: No Goal/Treatment Plan - Goal/Treatment Plan Need for Continued Stay: Other (medical) Progress Toward Problem(s) and Goals/Treatment Plan: Librium detox ended prn ativan per [facility] As needed medications Gabapentin for augmentation if needed All risks, benefits and alternatives of medications, including no medications, discussed and the patient understood and agreed. Supportive therapy and psychoeducation [place] for abstinence Encourage MAT: Naltrexone Refer to IOP Attend self-help groups as well
[2017-07-27] MEDS ORDERED: Multiple Vitamins Tab PO SCH (14:00)
--- NOTE | 2017-07-27 16:07 | CP.PCM.PN ---
Subjective - Date & Time of Evaluation Date of Evaluation: 07/27/17 Time of Evaluation: 11:40 - Subjective Subjective: patient seen today, alert , awake, oriented, denies any abdominal pain, N/V/D, NO tremors noted OOB ambulating the [address] way with steady gait Objective - Vital Signs/Intake and Output Vital Signs (last 24 hours): Temp Pulse Resp BP Pulse Ox 97.5 F L 81 18 96/66 L 98 07/27/17 07:00 07/27/17 07:00 07/27/17 07:00 07/27/17 13:27 07/27/17 07:00 Intake and Output: 07/27/17 07/27/17 06:59 18:59 Intake Total 1140 1040 Balance 1140 1040 - Medications Medications: Current Medications Folic Acid (Folic Acid) 1 mg PO DAILY [facility] Last Admin: 07/27/17 13:34 Dose: 1 mg Gabapentin (Neurontin) 100 mg PO TID [facility] Last Admin: 07/27/17 13:23 Dose: 100 mg Lactulose (Enulose) 20 gm PO [facility] Last Admin: 07/26/17 22:00 Dose: 20 gm Lorazepam (Ativan) 1 mg IVP Q6H PRN PRN Reason: alcohol withdrawal Lorazepam (Ativan) 1 mg PO TID [facility] Stop: 07/28/17 10:01 Last Admin: 07/27/17 13:47 Dose: 1 mg Magnesium Oxide (Mag-Ox) 400 mg PO TID [facility] Last Admin: 07/27/17 13:23 Dose: 400 mg Multivitamins (Hexavitamin) 1 tab PO DAILY [facility] Last Admin: 07/27/17 13:33 Dose: 1 tab Pantoprazole Sodium (Protonix Ec Tab) 20 mg PO DAILY [facility] Last Admin: 07/27/17 09:39 Dose: 20 mg Propranolol HCl (Inderal) 10 mg PO TID [facility] Last Admin: 07/27/17 13:26 Dose: Not Given Thiamine HCl (Vitamin B1 Tab) 100 mg PO DAILY [facility] Last Admin: 07/27/17 13:33 Dose: 100 mg Trazodone HCl (Desyrel) 50 mg PO [facility] Last Admin: 07/26/17 22:00 Dose: 50 mg - Labs Labs: 07/27/17 07:23 07/27/17 07:23 PT 10.8 SECONDS (9.7-12.2) 07/23/17 07:21 INR 1.0 07/23/17 07:21 APTT 46 SECONDS (21-34) H 07/23/17 07:21 - Constitutional Appears: No Acute Distress - Respiratory Exam Respiratory Exam: Clear to Ausculation Bilateral, NORMAL BREATHING PATTERN - Cardiovascular Exam Cardiovascular Exam: REGULAR RHYTHM, +S1, +S2 - Neurological Exam Neurological Exam: Alert, Awake, Oriented x3 Assessment and Plan - Assessment and Plan (Free Text) Assessment: A/P 62 year old female, with PMHx of HTN and chronic alcoholism, admitted with generalized weakness/ ETOH withdrawal Dr. Casiano on consult started on COW protocol seen by Dr. Casiano , recommends IOP, patient refused patient clinically improved and alert and oriented SW discussed with family IOP options and given phone number to f/u D/w Dr. Rivera , stable for discharge home today and f/u with Dr. Rivera office in 5 days discharge plan discussed with patient who understands and agrees with plan RX e- prescribed to pharmacy . awaiting family member to chicken picker pt
[2017-07-27 16:43] VITALS: BP 106/72; PULSE 64; TEMP 98; O2SAT 99
--- NOTE | 2017-07-27 23:23 | CP.PCM.DIS ---
Provider - Provider Date of Admission: 07/22/17 23:18 Attending physician: Medardo Rivera MD Time Spent in preparation of Discharge (in minutes): 45 Hospital Course - Lab Results Lab Results: Most Recent Lab Values WBC 3.2 K/uL (4.8-10.8) L 07/27/17 07:23 RBC 3.27 Mil/uL (3.80-5.20) L 07/27/17 07:23 Hgb 11.1 g/dL (11.0-16.0) 07/27/17 07:23 Hct 32.0 % (34.0-47.0) L 07/27/17 07:23 MCV 98.1 fL (81.0-99.0) 07/27/17 07: MCH 34.0 pg (27.0-31.0) H 07/27/17 07:23 MCHC 34.6 g/dL (33.0-37.0) 07/27/17 07: RDW 14.2 % (11.5-14.5) 07/27/17 07:23 Plt Count 63 K/uL (130-400) L 07/27/17 07:23 MPV 10.4 fL (7.2-11.7) 07/27/17 07:23 Neut % (Auto) 48.3 % (50.0-75.0) L 07/27/17 07:23 Lymph % (Auto) 31.1 % (20.0-40.0) 07/27/17 07:23 [place] % (Auto) 15.5 % (0.0-10.0) H 07/27/17 07:23 Eos % (Auto) 2.7 % (0.0-4.0) 07/27/17 07:23 Baso % (Auto) 2.4 % (0.0-2.0) H 07/27/17 07:23 Neut # (Auto) 1.5 K/uL (1.8-7.0) L 07/27/17 07:23 Lymph # (Auto) 1.0 K/uL (1.0-4.3) 07/27/17 07:23 [place] # (Auto) 0.5 K/uL (0.0-0.8) 07/27/17 07:23 Eos # (Auto) 0.1 K/uL (0.0-0.7) 07/27/17 07:23 Baso # (Auto) 0.1 K/uL (0.0-0.2) 07/27/17 07:23 Differential Comment 07/22/17 21:25 PT 10.8 SECONDS (9.7-12.2) 07/23/17 07:21 INR 1.0 07/23/17 07:21 APTT 46 SECONDS (21-34) H 07/23/17 07:21 Sodium 139 mmol/L (132-148) 07/27/17 07:23 Potassium 3.9 mmol/L (3.6-5.2) 07/27/17 07:23 Chloride 102 mmol/L (98-107) 07/27/17 07:23 Carbon Dioxide 28 mmol/L (22-30) 07/27/17 07:23 Anion Gap 13 (10-20) 07/27/17 07:23 BUN 13 mg/dL (7-17) 07/27/17 07:23 Creatinine 0.7 mg/dL (0.7-1.2) 07/27/17 07:23 Est GFR ( Amer) > 60 07/27/17 07:23 Est GFR (Non-Af Amer) > 60 07/27/17 07:23 POC Glucose (mg/dL) 109 mg/dL (65-110) 07/25/17 11:46 Random Glucose 89 mg/dL (65-105) 07/27/17 07:23 Calcium 9.2 mg/dl (8.6-10.4) 07/27/17 07:23 Magnesium 1.7 mg/dL (1.6-2.3) 07/27/17 07:23 Total Bilirubin 1.2 mg/dL (0.2-1.3) 07/26/17 06:58 AST 110 U/L (14-36) H D 07/26/17 06:58 ALT 78 U/L (9-52) H 07/26/17 06:58 Alkaline Phosphatase 101 U/L (38-126) 07/26/17 06:58 Ammonia 50 umol/L (9-33) H 07/27/17 07:23 Troponin I < 0.0120 ng/mL (0.00-0.120) 07/22/17 21:25 Total Protein 7.3 g/dL (6.3-8.3) 07/26/17 06:58 Albumin 4.4 g/dL (3.5-5.0) 07/26/17 06:58 Globulin 2.9 gm/dL (2.2-3.9) 07/26/17 06:58 Albumin/Globulin Ratio 1.5 (1.0-2.1) 07/26/17 06:58 - Hospital Course Hospital Course: A/P 62 year old female, with PMHx of HTN and chronic alcoholism, admitted with generalized weakness/ ETOH withdrawal Dr. Casiano on consult started on COW protocol seen by Dr. Casiano , recommends IOP, patient refused patient clinically improved and alert and oriented SW discussed with family IOP options and given phone number to f/u , stable for discharge home today and f/u with ME IN office in 5 days discharge plan discussed with patient who understands and agrees with plan RX e- prescribed to pharmacy . awaiting family member to pickler helper Discharge Exam - Head Exam Head Exam: ATRAUMATIC, NORMAL INSPECTION, NORMOCEPHALIC Discharge Plan - Discharge Medications Prescriptions: Lactulose [Enulose] 20 gm PO HS #450 ml Folic Acid 1 mg PO DAILY #30 tab Multivitamins [Hexavitamin] 1 tab PO DAILY #30 tab Propranolol [Inderal] 10 mg PO DAILY #30 tab Gabapentin [Neurontin] 100 mg PO TID #30 cap Pantoprazole [Protonix EC Tab] 20 mg PO DAILY #30 ect Thiamine [Vitamin B1 Tab] 100 mg PO DAILY #30 tab - Follow Up Plan Condition: GUARDED Disposition: HOME/ ROUTINE Instructions: Alcohol Use - When Is Drinking a Problem?, Alcohol Abuse and Alcoholism (DC), Folic Acid, Gabapentin, Lactulose, Pantoprazole, Propranolol, Thiamine, Vitamins (Multiple/Oral) Additional Instructions: Please follow up with Dr. Rivera or PMD in 5 days Please follow up with [facility] - [phone]- call and make appointment Continue medication as per med. rec. Please pickler helper medication from pharmacy -[facility] Referrals: [place] [facility] [Outside] Medardo Rivera MD [Staff Provider] -
== END 2017-07-27 17:52 | disposition home or self-care (01) | DRG 895 ==
LOC: C.ER 20:13 → C.6T 23:18
PROVIDERS: ADMIT Internal Medicine; ATTEND Internal Medicine
PROC: HZ2ZZZZ Detoxification Services for Substance Abuse Treatment (ICD-10-PCS; principal; 2017-07-22)
PROC: HZ52ZZZ Individual Psychotherapy for Substance Abuse Treatment, Cognitive-Behavioral (ICD-10-PCS; 2017-07-22)
PROC: HZ59ZZZ Individual Psychotherapy for Substance Abuse Treatment, Supportive (ICD-10-PCS; 2017-07-22)
PROC: HZ56ZZZ Individual Psychotherapy for Substance Abuse Treatment, Psychoeducation (ICD-10-PCS; 2017-07-22)
PROC: HZ42ZZZ Group Counseling for Substance Abuse Treatment, Cognitive-Behavioral (ICD-10-PCS; 2017-07-22)
PROC: HZ46ZZZ Group Counseling for Substance Abuse Treatment, Psychoeducation (ICD-10-PCS; 2017-07-22)
DX: F10.231 Alcohol dependence with withdrawal delirium (principal); F41.9 Anxiety disorder, unspecified; K70.31 Alcoholic cirrhosis of liver with ascites; I10 Essential (primary) hypertension; Y90.9 Presence of alcohol in blood, level not specified; S39.012A Strain of muscle, fascia and tendon of lower back, initial encounter; W19.XXXA Unspecified fall, initial encounter

== ENCOUNTER 2017-10-14 22:20 | Emergency (ER) | payer MEDICARE ==
--- NOTE | 2017-10-14 23:24 | C.PDOC ---
History Of Present Illness 62 year old female with a history of liver failure presents to the emergency department status-post tripping and falling. Patient states that she tripped prior to arrival and hurt her left arm, left knee, and also hit her head. Patient denies LOC and reports that she remembers the event. She denies nausea. vomiting, and visual changes. - HPI Time Seen by Provider: 10/14/17 23:24 Chief Complaint (Nursing): Trauma History Per: Patient History/Exam Limitations: no limitations Onset/Duration Of Symptoms: Hrs Location Of Injury: Left: Arm, Knee, Anterior: Face Past Medical History Reviewed: Historical Data, Nursing Documentation, Vital Signs Vital Signs: Last Vital Signs Temp 98.1 F 10/14/17 22:45 Pulse 91 H 10/14/17 22:45 Resp 20 10/14/17 22:45 BP 130/90 10/14/17 22:45 Pulse Ox 100 10/15/17 00:24 - Medical History PMH: Anxiety, HTN Denies: Chronic Kidney Disease Surgical History: Back Surgery ("fusion 2 years ago") - [facility] DETOXIFICATION SERVICES FOR SUBSTANCE ABUSE TREATMENT (07/22/17) GROUP VIROLOGY TEACHER FOR SUBSTANCE ABUSE TREATMENT, PSYCHOEDUCATION (07/22/17) GROUP VIROLOGY TEACHER FOR SUBSTANCE ABUSE, COGNITIVE BEHAVIORAL (07/22/17) INDIV PSYCHOTHERAPY FOR SUBSTANCE ABUSE TREATMENT, SUPPORT (07/22/17) INDIV PSYCHOTHERAPY FOR SUBSTANCE ABUSE, COGNITIV BEHAVIORAL (07/22/17) INDIV PSYCHOTHERAPY FOR SUBSTANCE ABUSE, PSYCHOEDUCATION (07/22/17) Family History: States: Unknown Family Hx - Social History Hx Alcohol Use: Yes (DRINKS 3 GLASSES WINE DAILY) Hx Substance Use: No - Immunization History Hx Tetanus Toxoid Vaccination: No Hx Influenza Vaccination: No Hx Pneumococcal Vaccination: No Review Of Systems Eyes: Negative for: Vision Change Gastrointestinal: Negative for: Nausea, Vomiting Musculoskeletal: Positive for: Arm Pain (left), Leg Pain (left knee) Physical Exam - Physical Exam Appears: Non-toxic, No Acute Distress Skin: Warm, Dry, Other (abrasion to left knee) Head: Atraumatic, Normacephalic, Abrasion (to the left pentecostal) Eye(s): bilateral: Normal Inspection Ear(s): Bilateral: Normal Nose: Normal, No Tenderness, No Septal Hematoma Neck: Trachea Midline, No Midline Cervical Tenderness, No Paracervical Tenderness, Supple Chest: Symmetrical, No Tenderness Cardiovascular: Rhythm Regular, No Murmur Respiratory: No Rales, No Rhonchi, No Wheezing Extremity: Normal ROM (to all fingers, to left knee), Tenderness (left shoulder , ), Capillary Refill (< 2 seconds), No Deformity, Other (patient keeping left arm flexed and abducted) Pulses: Left Brachial: Normal, Right Brachial: Normal, Left Radial: Normal, Right Radial: Normal, Left Dorsalis Pedis: Normal, Right Dorsalis Pedis: Normal Neurological/Psych: Oriented x3, Other (no focal deficits) ED Course And Treatment O2 Sat by Pulse Oximetry: 100 (RA) Pulse Ox Interpretation: Normal - Radiology CXR: Interpreted by Me, Viewed By Me CXR Interpretation: No: Infiltrates, Fracture, Pnemothorax - Other Rad shoulder X-Ray: Interpreted by Me, Viewed By Me Interpretation: fx humeral head Progress Note: Plan: CXR One View. Motrin 600mg PO. XR Left Shoulder. placed pt in a sling. moves all extremities Disposition Counseled Patient/Family Regarding: Studies Performed, Diagnosis, Need For Followup, Rx Given - Disposition Referrals: Fabiola Moscoso MD [Staff Provider] - Disposition: HOME/ ROUTINE Disposition Time: 23:24 Condition: FAIR Additional Instructions: Please return if symptoms recur Prescriptions: traMADol [Ultram] 50 mg PO TID PRN #15 tab PRN Reason: Pain, Severe (8-10) Instructions: Shoulder Fracture (DC) Forms: [facility] (Latvian) - Clinical Impression Clinical Impression: Fracture of surgical neck of humerus - Scribe Statement The provider has reviewed the documentation as recorded by the Scribe (Santana Henriquez) Provider Attestation: All medical record entries made by the Scribe were at my direction and personally dictated by me. I have reviewed the chart and agree that the record accurately reflects my personal performance of the history, physical exam, medical decision making, and the department course for this patient. I have also personally directed, reviewed, and agree with the discharge instructions and disposition.
[2017-10-15] MEDS ORDERED: Morphine 4 MG/ML VIAL ONE (01:04)
[2017-10-15 01:15] VITALS: BP 150/93; PULSE 97; RESP 16; TEMP 98.7; O2SAT 98
--- NOTE | 2017-10-15 10:32 | RAD ---
Chest x-ray single frontal view History: Fall. Comparison: None available. Findings: Biapical pleural thickening with upper lobe granulomatous changes. No focal infiltrate or effusion. Postsurgical changes in the spine. Top normal heart size. Fracture deformity of the left proximal humerus. Suggestion of fracture deformities of several left lower lateral ribs. Impression: Fracture deformity of the left proximal humerus. Suggestion of fracture deformities of several left lower lateral ribs.
--- NOTE | 2017-10-15 14:09 | RAD ---
Left shoulder two views History: Fall. Comparison: None available. Findings: Prominent fracture deformity of the left proximal humerus at the level of neck. Additional lucency through the base of the left greater tuberosity. Impression: Left humeral fracture.
== END 2017-10-15 01:15 | disposition home or self-care (01) ==
LOC: C.ER 22:20
DX: S42.212A Unspecified displaced fracture of surgical neck of left humerus, initial encounter for closed fracture (principal); W01.0XXA Fall on same level from slipping, tripping and stumbling without subsequent striking against object, initial encounter; I10 Essential (primary) hypertension
CPT/HCPCS: 71045; 73030; 96372; 99285; J2270

== ENCOUNTER 2018-03-27 21:19 | Emergency (ER) | payer MEDICARE ==
[2018-03-27 21:39] VITALS: TEMP 99.1
[2018-03-27] MEDS ORDERED: Sodium Chloride 0.9% 1,000 ML IV ONE (22:24)
[2018-03-27] MEDS ORDERED: Sodium Chloride 0.9% 1,000 ML ONE (22:41)
[2018-03-27 22:44] LABS: BASO # 0.1 K/uL (0.0-0.2); BASO % 1.4 % (0.0-2.0); EOS % 0.3 % (0.0-4.0); HEMOGLOBIN 12.5 g/dL (11.0-16.0); LYMPH # 1.5 K/uL (1.0-4.3); LYMPH % 32.9 % (20.0-40.0); MEAN CELL VOLUME 98.3 fL (81.0-99.0); MEAN CORPUSCULAR HEMOGLOBIN 32.2 pg (27.0-31.0); MEAN CORPUSCULAR HGB CONC 32.7 g/dL (33.0-37.0); MEAN PLATELET VOLUME 8.1 fL (7.2-11.7); MONO # 0.4 K/uL (0.0-0.8); MONO % 8.5 % (0.0-10.0); NEUT # 2.6 K/uL (1.8-7.0); NEUT % 56.9 % (50.0-75.0); NRBC % 0.1 % (0.0-2.0); RBC 3.89 Mil/uL (3.80-5.20); RED CELL DISTRIBUTION WIDTH 15.1 % (11.5-14.5); WHITE BLOOD COUNT 4.6 K/uL (4.8-10.8)
[2018-03-27 22:53] LABS: PROTHROMBIN TIME 10.7 SECONDS (9.7-12.2)
--- NOTE | 2018-03-27 22:53 | C.PDOC ---
History Of Present Illness 62 year old female chronic alcoholic, reports she drank yesterday and today, today complains of left shoulder pain. Patient states she fractured her left shoulder several weeks ago but declined surgery, she has not been taking any of the prescribed pain medications for her shoulder. She also complains that her heart is beating "1000 bpm". Denies chest pain or SOB. She reports her tachycardia has much improved and is feeling better now. Time Seen by Provider: 03/27/18 22:06 Chief Complaint (Nursing): Chest Pain History Per: Patient History/Exam Limitations: no limitations Onset/Duration Of Symptoms: Days Current Symptoms Are (Timing): Still Present Recent travel outside of the [place]: No Past Medical History Reviewed: Historical Data, Nursing Documentation, Vital Signs Vital Signs: Last Vital Signs Temp 99.1 F 03/27/18 21:35 Pulse 114 H 03/27/18 21:35 Resp 18 03/27/18 21:35 BP 156/101 H 03/27/18 21:35 Pulse Ox 95 03/27/18 21:35 - Medical History PMH: Anxiety, HTN Denies: Chronic Kidney Disease Surgical History: Back Surgery ("fusion 2 years ago") - [facility] Procedures DETOXIFICATION SERVICES FOR SUBSTANCE ABUSE TREATMENT (07/22/17) GROUP [employer]ING MANAGER FOR SUBSTANCE ABUSE TREATMENT, PSYCHOEDUCATION (07/22/17) GROUP MOBILE MARKETING MANAGER FOR SUBSTANCE ABUSE, COGNITIVE BEHAVIORAL (07/22/17) INDIV PSYCHOTHERAPY FOR SUBSTANCE ABUSE TREATMENT, SUPPORT (07/22/17) INDIV PSYCHOTHERAPY FOR SUBSTANCE ABUSE, COGNITIV BEHAVIORAL (07/22/17) INDIV PSYCHOTHERAPY FOR SUBSTANCE ABUSE, PSYCHOEDUCATION (07/22/17) Family History: States: Unknown Family Hx - Social History Hx Alcohol Use: Yes (DRINKS 3 GLASSES WINE DAILY) Hx Substance Use: No - Immunization History Hx Tetanus Toxoid Vaccination: No Hx Influenza Vaccination: No Hx Pneumococcal Vaccination: No Review Of Systems Constitutional: Negative for: Fever, Chills Cardiovascular: Negative for: Chest Pain Respiratory: Negative for: Cough, Shortness of Breath Gastrointestinal: Negative for: Nausea, Vomiting, Diarrhea Genitourinary: Negative for: Dysuria, Hematuria Musculoskeletal: Positive for: Shoulder Pain (Left) Skin: Negative for: Rash Neurological: Negative for: Weakness, Numbness Physical Exam - Physical Exam Appears: Non-toxic, Other (Mildly intoxicated, mildly slurred speech) Skin: Normal Color, Warm, Dry Head: Atraumatic, Normacephalic Eye(s): bilateral: Normal Inspection Oral Mucosa: Moist Neck: Normal, Supple Chest: Symmetrical, No Tenderness Cardiovascular: Rhythm Regular, Other (Tachycardia) Respiratory: Normal Breath Sounds, No Rales, No Rhonchi, No Wheezing Gastrointestinal/Abdominal: Soft, No Tenderness Extremity: No Tenderness, No Deformity, Other (Able to range left shoulder with no difficulty.) Pulses: Left Radial: Normal, Right Radial: Normal Neurological/Psych: Oriented x3 ED Course And Treatment - Laboratory Results Result Diagrams: 03/27/18 22:38 03/27/18 22:38 ECG: Interpreted By Me, Viewed By Me ECG Rhythm: Sinus Tachycardia ECG Interpretation: Normal Interpretation Of ECG: Normal axis, normal intervals, no ST elevation Rate From EC O2 Sat by Pulse Oximetry: 95 (room air) Pulse Ox Interpretation: Normal Medical Decision Making Medical Decision Making: Plan: * Blood work * IV fluids * Toradol * Ativan Patient given IV fluids and meds. On re-eval HR and BP improved. Patient has no complaints and states that she would like to go home. Advised outpatient followup. Return to the ED for any new or worsening symptoms. No clinical signs and symptoms of EtOH withdrawal at discharge. Disposition - Disposition Disposition: HOME/ ROUTINE Disposition Time: 23:50 Condition: STABLE Additional Instructions: [facility], thank you for letting us take care of you today. Your provider was Apple Chow MD and you were treated for SHOULDER PAIN. The emergency medical care you received today was directed at your acute symptoms. If you were prescribed any medication, please fill it and take as directed. It may take several days for your symptoms to resolve. Return to the Emergency Department if your symptoms worsen, do not improve, or if you have any other problems. Please contact your doctor or call one of the physicians/clinics you have been r eferred to that are listed on the Patient Visit Information form that is included in your discharge packet. Bring any paperwork you were given at discharge with you along with any medications you are taking to your follow up visit. Our treatment cannot replace ongoing medical care by a primary care provider outside of the emergency department. Thank you for allowing the [facility] team to be part of your care today. If you had an X-Ray or CT scan: A Radiologist will review the ED reading if any change in treatment is needed we will contact you. If you had a blood, urine, or wound culture: It will take several days for the results, if any change in treatment is needed we will contact you. If you had an STI test: It will take 48 hours for the results. Please call after 1 week if you have not heard back. Instructions: Palpitations (DC), Alcohol Abuse and Alcoholism (DC) Forms: [employer] ([place]ican) - Clinical Impression Clinical Impression: Palpitations, Alcohol abuse - Scribe Statement The provider has reviewed the documentation as recorded by the Scribcolton Lopez All medical record entries made by the Dinahibcolton were at my direction and personally dictated by me. I have reviewed the chart and agree that the record accurately reflects my personal performance of the history, physical exam, medical decision making, and the department course for this patient. I have also personally directed, reviewed, and agree with the discharge instructions and disposition.
[2018-03-27 23:03] LABS: BLOOD UREA NITROGEN 14 mg/dL (7-17); CALCIUM 9.2 mg/dl (8.6-10.4); GFR NON-AFRICAN AMERICAN > 60
[2018-03-27 23:48] VITALS: BP 131/81; PULSE 102; RESP 19
[2018-03-27 23:52] VITALS: O2SAT 95
--- NOTE | 2018-03-28 20:17 | CARD ---
APPROVED REPORT Date of service: 03/27/2018 EKG Measurement Heart [id number] <Conclusion> Sinus tachycardia Possible Left atrial enlargement Borderline ECG
== END 2018-03-28 00:14 | disposition home or self-care (01) ==
LOC: C.ER 21:19
DX: R00.2 Palpitations (principal); F10.10 Alcohol abuse, uncomplicated; I10 Essential (primary) hypertension
CPT/HCPCS: 80048; 84484; 85025; 85610; 85730; 93005; 96361; 96374; 96375; 99285; J1885; J2060; J7030